=== PATIENT | female | born 1960 | race Caucasian/White ===

== ENCOUNTER 2023-04-22 15:27 | Inpatient (IN) | payer OTHER ==
[~2023-04-22] VITALS: Ht 154.9 cm; Wt 61.2 kg
[~2023-04-22 15:27] MED LIST: BENA40TA89 PO; METF-518 PO; POTA-197 PO; PRO40 PO; ROSU20TA2 PO
[2023-04-22 15:36] VITALS: PULSE 69; RESP 16; TEMP 97.6; O2SAT 97
[2023-04-22] MEDS ORDERED: MECLIZINE HCL 25 MG TABLET (ANITVERT) PO ONE (15:45)
[2023-04-22] MEDS ORDERED: METOCLOPRAMIDE HCL 10 MG/2 ML VIAL IVP ONE (15:45)
[2023-04-22 16:09] LABS: BASOPHILS % (AUTO) 0.1 % (0.0-2.0); HEMATOCRIT 37.6 % (36-48); HEMOGLOBIN 11.8 g/dL (12.0-16.0); LYMPHOCYTES # (AUTO) 0.6 K/uL (1.0-5.5); LYMPHOCYTES % (AUTO) 2.7 % (20.5-51.5); MEAN CORPUSCULAR HEMOGLOBIN 26 pg (27-31); MEAN CORPUSCULAR HGB CONC 31 % (32-36); MEAN CORPUSCULAR VOLUME 84 fL (79.0-98.0); MONOCYTES # (AUTO) 0.3 K/uL (0.0-1.0); MONOCYTES % (AUTO) 1.3 % (1.7-9.3); NEUTROPHILS # (AUTO) 19.9 K/uL (1.8-7.7); NEUTROPHILS % (AUTO) 95.9 % (40.0-70.0); PLATELET COUNT (AUTO) 320 K/uL (130-430); RED BLOOD CELL COUNT(AUTO) 4.48 MIL/uL (4.2-6.2); RED CELL DISTRIBUTION WIDTH 14.3 % (9.0-15.0); WHITE BLOOD COUNT (AUTO) 20.8 K/uL (4.8-10.8)
[2023-04-22 16:21] LABS: ALBUMIN 3.2 g/dL (3.4-4.8); ANION GAP 8 (5-15); ASPARTATE AMINOTRANSFERASE 12 U/L (10-37); CALCIUM 9.3 mg/dL (8.4-11.0); CARBON DIOXIDE 29 mmol/L (23-29); CHLORIDE 91 mmol/L (98-107); CREATININE 0.83 mg/dL (0.55-1.30); GFR AFRICAN AMERICAN 89 mL/min (>90); GFR NON AFRICAN-AMERICAN 74 mL/min (>90); GLUCOSE 369 mg/dL (74-106); POTASSIUM 4.1 mmol/L (3.5-5.1); SODIUM SERUM 128 mmol/L (136-145); TOTAL BILIRUBIN 0.9 mg/dL (0.0-1.0); TOTAL PROTEIN, SERUM 7.3 g/dL (6.4-8.3); UREA NITROGEN, BLOOD 11 mg/dL (8-21)
[2023-04-22 16:32] LABS: CREATINE KINASE, TOTAL 14 U/L (26-192); LIPASE 41 U/L (73-393)
[2023-04-22 16:45] LABS: ACETONE, SERUM TRACE (NEGATIVE)
[2023-04-22] MEDS ORDERED: PIPERACILLIN/TAZO 4.5GM/DEX-IS 100 ML IV SCH (16:45)
[2023-04-22 16:57] LABS: ALANINE AMINOTRANSFERASE 12 U/L (12-78)
[2023-04-22] MEDS ORDERED: PIPERACILLIN/TAZO 4.5GM/DEX-IS 100 ML IV ONE (17:00)
[2023-04-22 17:31] LABS: BILIRUBIN,URINE NEGATIVE (NEGATIVE); BLOOD, URINE 2+ (NEGATIVE); CLARITY/URINE SL CLOUDY (CLEAR); COLOR,URINE YELLOW (YELLOW); GLUCOSE,URINE 3+ (NEGATIVE); KETONES,URINE 2+ (NEGATIVE); LEUKOCYTE ESTERASE ,URINE 1+ (NEGATIVE); NITRITE, URINE POSITIVE (NEGATIVE); PH,URINE 5.5 (5.0-8.0); PROTEIN URINE 1+ (NEGATIVE); UROBILINOGEN,URINE 0.2 (0.2-1.0)
[2023-04-22 17:39] LABS: BACTERIA,URINE MODERATE /HPF (None Seen); MUCUS,URINE None Seen /LPF (None Seen); RBC,URINE NONE SEEN /HPF (0-3); YEAST,URINE Few /HPF (None Seen)
[2023-04-22] MEDS ORDERED: VANCOMYCIN HCL 1,000 MG in NS 250 ML IV ONE (18:00)
[2023-04-22] MEDS ORDERED: D5/0.45 NS 1,000 ML IV ONE (18:30)
[2023-04-22 21:36] VITALS: BP_SYST 142; PULSE 85; RESP 18; TEMP 97.6
[2023-04-22] MEDS ORDERED: cefTRIAXone 1 GM VIAL ONE (22:58)
[2023-04-22] MEDS: cefTRIAXone 1 GM in D5W 50 ML IV SCH (23:06)
[2023-04-23 00:49] VITALS: BP_SYST 128; PULSE 69; RESP 16; TEMP 97.3; O2SAT 97
[2023-04-23 06:22] LABS: CALCIUM 8.7 mg/dL (8.4-11.0); CREATININE 0.67 mg/dL (0.55-1.30); POTASSIUM 3.3 mmol/L (3.5-5.1)
[2023-04-23 06:26] LABS: ALBUMIN 2.7 g/dL (3.4-4.8); TOTAL BILIRUBIN 0.6 mg/dL (0.0-1.0); TOTAL PROTEIN, SERUM 6.5 g/dL (6.4-8.3)
[2023-04-23 07:00] VITALS: O2SAT 100
[2023-04-23 08:00] VITALS: BP_SYST 136; PULSE 88; RESP 16; TEMP 100.2; O2SAT 94
[2023-04-23 11:05] VITALS: BP_SYST 130; PULSE 78; RESP 18; TEMP 97.8; O2SAT 93
[2023-04-23] MEDS ORDERED: D5W 1,000 ML IV PRN (12:00)
[2023-04-23] MEDS ORDERED: POTASSIUM CHLORIDE 20 MEQ TAB.PRT.SR PO ONE (12:00)
[2023-04-23] MEDS ORDERED: GLUCOSE (DEXTROSE) ORAL GEL -Adults PO PRN (12:00)
[2023-04-23] MEDS ORDERED: DEXTROSE 50% JECT 50 ML DISP.SYRIN IVP PRN (12:00)
[2023-04-23] MEDS: INSULIN LISPRO SLIDING SCALE 100 UNITS/ML, 3 ML VIAL (humaLOG) SUBCUT PRN ×3 (13:39→20:48)
[2023-04-23] MEDS: 0.45% NACL 1,000 ML IV SCH (13:41)
[2023-04-23 17:10] VITALS: BP_SYST 122; PULSE 87; RESP 17; TEMP 98.8; O2SAT 96
[2023-04-23 20:00] VITALS: BP_SYST 144; PULSE 87; RESP 16; TEMP 99; O2SAT 94
[2023-04-23] MEDS ORDERED: cefTRIAXone 1 GM IVPB PREMIX 50 ML IV ONE (22:16)
[2023-04-23] MEDS: cefTRIAXone 1 GM in D5W 50 ML IV SCH (22:31)
[2023-04-24 00:06] VITALS: BP_SYST 146; PULSE 91; RESP 18; TEMP 100.1; O2SAT 96
[2023-04-24 00:07] VITALS: O2SAT 94
[2023-04-24] MEDS: 0.45% NACL 1,000 ML IV SCH ×3 (00:59→19:20)
[2023-04-24] MEDS: INSULIN LISPRO SLIDING SCALE 100 UNITS/ML, 3 ML VIAL (humaLOG) SUBCUT PRN ×3 (06:11→21:03)
[2023-04-24 07:00] VITALS: O2SAT 96
[2023-04-24 07:13] LABS: CALCIUM 8.6 mg/dL (8.4-11.0); CREATININE 0.59 mg/dL (0.55-1.30); POTASSIUM 3.8 mmol/L (3.5-5.1)
[2023-04-24 07:19] LABS: BASOPHILS # (AUTO) 0.1 K/uL (0.0-0.2); BASOPHILS % (AUTO) 0.3 % (0.0-2.0); EOSINOPHILS # (AUTO) 0.1 K/uL (0.0-0.4); EOSINOPHILS % (AUTO) 0.3 % (0.0-4.0); HEMATOCRIT 36.1 % (36-48); HEMOGLOBIN 11.6 g/dL (12.0-16.0); LYMPHOCYTES # (AUTO) 1.4 K/uL (1.0-5.5); LYMPHOCYTES % (AUTO) 7.7 % (20.5-51.5); MEAN CORPUSCULAR HEMOGLOBIN 27 pg (27-31); MEAN CORPUSCULAR HGB CONC 32 % (32-36); MEAN CORPUSCULAR VOLUME 83 fL (79.0-98.0); MONOCYTES # (AUTO) 0.9 K/uL (0.0-1.0); MONOCYTES % (AUTO) 4.9 % (1.7-9.3); NEUTROPHILS # (AUTO) 15.8 K/uL (1.8-7.7); NEUTROPHILS % (AUTO) 86.8 % (40.0-70.0); PLATELET COUNT (AUTO) 281 K/uL (130-430); RED BLOOD CELL COUNT(AUTO) 4.35 MIL/uL (4.2-6.2); WHITE BLOOD COUNT (AUTO) 18.2 K/uL (4.8-10.8)
[2023-04-24 11:14] VITALS: BP_SYST 146; PULSE 77; RESP 16; TEMP 97.4; O2SAT 96
[2023-04-24] MEDS ORDERED: INSULIN GLARGINE 100 UNITS/ML, 10 ML VIAL SUBCUT ONE (13:30)
[2023-04-24] MEDS ORDERED: MEROPENEM 1 GM in NS 100 ML IV SCH (14:00)
[2023-04-24 16:07] VITALS: BP_SYST 145; PULSE 90; RESP 17; TEMP 98.2; O2SAT 98
[2023-04-24] MEDS: VANCOMYCIN HCL 750 MG in NS 250 ML IV SCH (19:19)
[2023-04-24 20:00] VITALS: BP_SYST 165; PULSE 58; RESP 16; TEMP 97.5; O2SAT 98
[2023-04-24] MEDS ORDERED: cefTRIAXone 1 GM in D5W 50 ML IV SCH (21:00)
[2023-04-25 00:15] VITALS: BP_SYST 155; PULSE 77; RESP 16; TEMP 96.9; O2SAT 96
[2023-04-25] MEDS: 0.45% NACL 1,000 ML IV SCH (03:42)
[2023-04-25] MEDS: VANCOMYCIN HCL 750 MG in NS 250 ML IV SCH ×2 (05:45→17:35)
[2023-04-25] MEDS: INSULIN LISPRO SLIDING SCALE 100 UNITS/ML, 3 ML VIAL (humaLOG) SUBCUT PRN ×4 (06:29→20:46)
[2023-04-25 08:14] VITALS: BP_SYST 133; PULSE 75; RESP 14; TEMP 97.8; O2SAT 95
[2023-04-25] MEDS ORDERED: INSULIN GLARGINE 100 UNITS/ML, 10 ML VIAL SUBCUT SCH (09:00)
[2023-04-25 11:17] VITALS: BP_SYST 146; PULSE 75; RESP 16; TEMP 97.7; O2SAT 94
[2023-04-25 11:39] VITALS: O2SAT 95
[2023-04-25 13:34] LABS: BASOPHILS # (AUTO) 0.1 K/uL (0.0-0.2); BASOPHILS % (AUTO) 0.6 % (0.0-2.0); EOSINOPHILS # (AUTO) 0.1 K/uL (0.0-0.4); EOSINOPHILS % (AUTO) 0.9 % (0.0-4.0); HEMATOCRIT 34.7 % (36-48); LYMPHOCYTES # (AUTO) 1.4 K/uL (1.0-5.5); LYMPHOCYTES % (AUTO) 10.8 % (20.5-51.5); MEAN CORPUSCULAR HEMOGLOBIN 26 pg (27-31); MEAN CORPUSCULAR HGB CONC 32 % (32-36); MEAN CORPUSCULAR VOLUME 83 fL (79.0-98.0); MONOCYTES # (AUTO) 0.9 K/uL (0.0-1.0); MONOCYTES % (AUTO) 6.4 % (1.7-9.3); NEUTROPHILS # (AUTO) 10.8 K/uL (1.8-7.7); NEUTROPHILS % (AUTO) 81.3 % (40.0-70.0); PLATELET COUNT (AUTO) 282 K/uL (130-430); RED BLOOD CELL COUNT(AUTO) 4.18 MIL/uL (4.2-6.2); RED CELL DISTRIBUTION WIDTH 14.1 % (9.0-15.0); WHITE BLOOD COUNT (AUTO) 13.3 K/uL (4.8-10.8)
[2023-04-25 15:33] VITALS: BP_SYST 124; PULSE 72; RESP 16; TEMP 96.4; O2SAT 96
[2023-04-25] MEDS ORDERED: cefTRIAXone 1 GM in D5W 50 ML IV SCH (18:00)
[2023-04-25 20:00] VITALS: BP_SYST 135; PULSE 82; RESP 16; TEMP 98.2; O2SAT 97
[2023-04-26] VITALS (8 sets, daily range): BP systolic 137–146; PULSE 69–87; RESP 14–18; TEMP 97.3–98; O2SAT 94–98
[2023-04-26] MEDS: INSULIN LISPRO SLIDING SCALE 100 UNITS/ML, 3 ML VIAL (humaLOG) SUBCUT PRN ×4 (06:10→21:54)
[2023-04-26] MEDS: INSULIN GLARGINE 100 UNITS/ML, 10 ML VIAL SUBCUT SCH (08:37)
[2023-04-26 09:58] LABS: CALCIUM 8.5 mg/dL (8.4-11.0); CREATININE 0.53 mg/dL (0.55-1.30); POTASSIUM 3.4 mmol/L (3.5-5.1)
[2023-04-26] MEDS ORDERED: INSU100V9 SUBCUT (15:20)
[2023-04-26] MEDS ORDERED: ROCI2 IM/IV (15:20)
[2023-04-26] MEDS ORDERED: cefTRIAXone 2 GM in D5W 50 ML IV SCH (18:00)
[2023-04-26] MEDS ORDERED: cefTRIAXone 1 GM VIAL ONE (23:51)
[2023-04-27 01:17] VITALS: BP_SYST 160; PULSE 76; RESP 18; TEMP 96.8; O2SAT 95
[2023-04-27 08:00] VITALS: BP_SYST 141; PULSE 79; RESP 18; TEMP 96.9; O2SAT 97
[2023-04-27] MEDS ORDERED: cefTRIAXone 2 GM in D5W 50 ML IV SCH (09:00)
[2023-04-27] MEDS: INSULIN GLARGINE 100 UNITS/ML, 10 ML VIAL SUBCUT SCH (09:02)
[2023-04-27 10:43] VITALS: O2SAT 97
[2023-04-27 11:35] VITALS: BP_SYST 139; PULSE 82; RESP 15; TEMP 97.5; O2SAT 95
[2023-04-27] MEDS: INSULIN LISPRO SLIDING SCALE 100 UNITS/ML, 3 ML VIAL (humaLOG) SUBCUT PRN (11:55)
[2023-04-27 15:28] VITALS: BP_SYST 126; PULSE 74; RESP 16; TEMP 97.7; O2SAT 94
== END 2023-04-27 18:48 | disposition home health service (06) | DRG 871 ==
LOC: SED 15:27 → SMU 21:35
PROVIDERS: ADMIT Specialist; ATTEND Specialist
DX: A41.2 Sepsis due to unspecified staphylococcus (principal); G93.41 Metabolic encephalopathy; N12 Tubulo-interstitial nephritis, not specified as acute or chronic; E11.40 Type 2 diabetes mellitus with diabetic neuropathy, unspecified; E78.5 Hyperlipidemia, unspecified; Z20.822 Contact with and (suspected) exposure to COVID-19; I10 Essential (primary) hypertension; Z90.49 Acquired absence of other specified parts of digestive tract; Z79.899 Other long term (current) drug therapy; Z79.4 Long term (current) use of insulin
CPT/HCPCS: 36415; 70450-TC; 71045; 76376; 80048; 80053; 80202; 81000; 82009; 82550; 82962; 83605; 83690; 84484; 85025; 87040; 87086; 93005; 93306; 96361; 96365; 96367; 96375; 97110-GP; 97116-GP; 97163-GP; 97530-GP; 99285; J0696; J1815; J2185; J2543; J2765; J3370; J7030; J7050; J7060; J8597

== ENCOUNTER 2024-01-29 20:39 | Emergency (ER) | payer OTHER ==
[~2024-01-29] VITALS: Ht 157.5 cm; Wt 62.6 kg
[~2024-01-29 20:39] MED LIST changes: +INSU100V9 SUBCUT; -POTA-197 PO; +ROCI2 IM/IV
[2024-01-29 20:46] VITALS: BP_SYST 98; PULSE 84; RESP 20; TEMP 99.2; O2SAT 97
[2024-01-29 21:39] LABS: BASOPHILS # (AUTO) 0.1 K/uL (0.0-0.2); BASOPHILS % (AUTO) 0.4 % (0.0-2.0); EOSINOPHILS # (AUTO) 0.2 K/uL (0.0-0.4); EOSINOPHILS % (AUTO) 1.5 % (0.0-4.0); HEMATOCRIT 34.8 % (36-48); HEMOGLOBIN 11.7 g/dL (12.0-16.0); LYMPHOCYTES # (AUTO) 1.8 K/uL (1.0-5.5); LYMPHOCYTES % (AUTO) 11.4 % (20.5-51.5); MEAN CORPUSCULAR HEMOGLOBIN 29 pg (27-31); MEAN CORPUSCULAR HGB CONC 34 % (32-36); MEAN CORPUSCULAR VOLUME 87 fL (79.0-98.0); MONOCYTES # (AUTO) 1.3 K/uL (0.0-1.0); MONOCYTES % (AUTO) 8.1 % (1.7-9.3); NEUTROPHILS # (AUTO) 12.3 K/uL (1.8-7.7); NEUTROPHILS % (AUTO) 78.6 % (40.0-70.0); PLATELET COUNT (AUTO) 328 K/uL (130-430); RED BLOOD CELL COUNT(AUTO) 4.01 MIL/uL (4.2-6.2); RED CELL DISTRIBUTION WIDTH 13.1 % (9.0-15.0); WHITE BLOOD COUNT (AUTO) 15.7 K/uL (4.8-10.8)
[2024-01-29 21:53] LABS: ANION GAP 7 (5-15); ASPARTATE AMINOTRANSFERASE 8 U/L (10-37); CALCIUM 8.4 mg/dL (8.4-11.0); CARBON DIOXIDE 28 mmol/L (23-29); CHLORIDE 100 mmol/L (98-107); CREATININE 0.94 mg/dL (0.55-1.30); GFR AFRICAN AMERICAN 77 mL/min (>90); GLUCOSE 194 mg/dL (74-106); POTASSIUM 4.8 mmol/L (3.5-5.1); SODIUM SERUM 135 mmol/L (136-145); TOTAL BILIRUBIN 0.5 mg/dL (0.0-1.0); TOTAL PROTEIN, SERUM 7.1 g/dL (6.4-8.3); UREA NITROGEN, BLOOD 21 mg/dL (8-21)
[2024-01-29 21:57] LABS: GFR NON AFRICAN-AMERICAN 64 mL/min (>90)
[2024-01-29 22:02] LABS: BILIRUBIN,DIRECT 0.2 mg/dL (0.0-0.3); CREATINE KINASE, TOTAL 31 U/L (26-192); FREE T4 (FREE THYROXINE) 1.3 ng/dl (0.8-1.5); THYROID STIMULATING HORMONE 2.23 uIu/mL (0.36-3.74)
[2024-01-29 22:12] LABS: ALANINE AMINOTRANSFERASE 7 U/L (12-78)
[2024-01-29 22:25] LABS: INR 1.1 (0.8-1.2); PROTHROMBIN TIME 11.1 SECS (9.5-12.5)
[2024-01-29] MEDS: cefTRIAXone 1 GM IVPB PREMIX 50 ML IV ONE (23:07)
[2024-01-29] MEDS: NACL 0.9% 1,000 ML IV ONE (23:08)
[2024-01-29 23:28] LABS: BILIRUBIN,URINE NEGATIVE (NEGATIVE); BLOOD, URINE 2+ (NEGATIVE); CLARITY/URINE SL CLOUDY (CLEAR); COLOR,URINE YELLOW (YELLOW); GLUCOSE,URINE NEGATIVE (NEGATIVE); KETONES,URINE NEGATIVE (NEGATIVE); LEUKOCYTE ESTERASE ,URINE 2+ (NEGATIVE); NITRITE, URINE NEGATIVE (NEGATIVE); PROTEIN URINE 2+ (NEGATIVE); UROBILINOGEN,URINE 0.2 (0.2-1.0)
[2024-01-29 23:36] LABS: BACTERIA,URINE MANY /HPF (None Seen); WBC,URINE >100 /HPF (0-3)
[2024-01-29 23:52] LABS: ACETONE, SERUM NEGATIVE (NEGATIVE)
[2024-01-30] MEDS ORDERED: CIPR500T5 PO (00:06)
[2024-01-30 00:20] VITALS: BP_SYST 139; PULSE 87; RESP 16; TEMP 97.8; O2SAT 98
== END 2024-01-30 00:20 | disposition home or self-care (01) ==
LOC: SED 20:39
DX: N39.0 Urinary tract infection, site not specified (principal); N81.10 Cystocele, unspecified; E11.9 Type 2 diabetes mellitus without complications; I10 Essential (primary) hypertension; Z79.899 Other long term (current) drug therapy
CPT/HCPCS: 99285; 96365; 71045; 80076; 80048; 81001; 82009; 82550; 84439; 84443; 85025; 85610; 85730; 87040; 87086; 84484; 36415; 93005; 83605; 81000; 81015; J0696

== ENCOUNTER 2024-01-31 09:13 | Emergency (ER) | payer OTHER ==
[~2024-01-31] VITALS: Ht 157.5 cm; Wt 62.6 kg
[~2024-01-31 09:13] MED LIST changes: +CIPR500T5 PO
[2024-01-31 09:28] VITALS: BP_SYST 166; PULSE 72; RESP 20; TEMP 98.3; O2SAT 98
[2024-01-31 09:56] LABS: BASOPHILS # (AUTO) 0.1 K/uL (0.0-0.2); BASOPHILS % (AUTO) 0.6 % (0.0-2.0); EOSINOPHILS # (AUTO) 0.3 K/uL (0.0-0.4); EOSINOPHILS % (AUTO) 2.6 % (0.0-4.0); HEMATOCRIT 36.5 % (36-48); HEMOGLOBIN 12.3 g/dL (12.0-16.0); LYMPHOCYTES # (AUTO) 1.6 K/uL (1.0-5.5); LYMPHOCYTES % (AUTO) 15.6 % (20.5-51.5); MEAN CORPUSCULAR HEMOGLOBIN 29 pg (27-31); MEAN CORPUSCULAR HGB CONC 34 % (32-36); MEAN CORPUSCULAR VOLUME 88 fL (79.0-98.0); MONOCYTES # (AUTO) 0.7 K/uL (0.0-1.0); MONOCYTES % (AUTO) 7.1 % (1.7-9.3); NEUTROPHILS # (AUTO) 7.7 K/uL (1.8-7.7); NEUTROPHILS % (AUTO) 74.1 % (40.0-70.0); PLATELET COUNT (AUTO) 358 K/uL (130-430); RED BLOOD CELL COUNT(AUTO) 4.18 MIL/uL (4.2-6.2); RED CELL DISTRIBUTION WIDTH 13.1 % (9.0-15.0); WHITE BLOOD COUNT (AUTO) 10.4 K/uL (4.8-10.8)
[2024-01-31 10:10] LABS: CREATININE 0.72 mg/dL (0.55-1.30); POTASSIUM 4.5 mmol/L (3.5-5.1)
[2024-01-31 10:16] LABS: PROTHROMBIN TIME 10.8 SECS (9.5-12.5)
[2024-01-31 10:48] LABS: BILIRUBIN,URINE NEGATIVE (NEGATIVE); BLOOD, URINE 1+ (NEGATIVE); CLARITY/URINE CLEAR (CLEAR); COLOR,URINE YELLOW (YELLOW); GLUCOSE,URINE NEGATIVE (NEGATIVE); KETONES,URINE 1+ (NEGATIVE); LEUKOCYTE ESTERASE ,URINE NEGATIVE (NEGATIVE); NITRITE, URINE NEGATIVE (NEGATIVE); PROTEIN URINE 3+ (NEGATIVE); UROBILINOGEN,URINE 0.2 (0.2-1.0)
[2024-01-31 11:00] LABS: BACTERIA,URINE FEW /HPF (None Seen); MUCUS,URINE 1+ /LPF (None Seen)
[2024-01-31 11:41] VITALS: BP_SYST 142; PULSE 70; RESP 22; TEMP 98; O2SAT 99
== END 2024-01-31 11:35 | disposition home or self-care (01) ==
LOC: SED 09:13
DX: K62.5 Hemorrhage of anus and rectum (principal); N81.10 Cystocele, unspecified; Z46.6 Encounter for fitting and adjustment of urinary device; E11.9 Type 2 diabetes mellitus without complications; I10 Essential (primary) hypertension
CPT/HCPCS: 36415; 80048; 81000; 81001; 81015; 85025; 85610; 85730; 87086; 99283

== ENCOUNTER 2024-07-23 08:34 | Emergency (ER) | payer OTHER ==
[~2024-07-23] VITALS: Ht 157.5 cm; Wt 60.3 kg
[2024-07-23 08:39] VITALS: BP_SYST 150; PULSE 75; RESP 16; TEMP 97.1; O2SAT 99
[2024-07-23 09:37] LABS: BASOPHILS % (AUTO) 0.6 % (0.0-2.0); EOSINOPHILS # (AUTO) 0.1 K/uL (0.0-0.4); EOSINOPHILS % (AUTO) 1.4 % (0.0-4.0); HEMATOCRIT 37.9 % (36-48); HEMOGLOBIN 12.5 g/dL (12.0-16.0); LYMPHOCYTES # (AUTO) 1.8 K/uL (1.0-5.5); LYMPHOCYTES % (AUTO) 26.3 % (20.5-51.5); MEAN CORPUSCULAR HEMOGLOBIN 29 pg (27-31); MEAN CORPUSCULAR HGB CONC 33 % (32-36); MEAN CORPUSCULAR VOLUME 89 fL (79.0-98.0); MONOCYTES # (AUTO) 0.5 K/uL (0.0-1.0); MONOCYTES % (AUTO) 7.4 % (1.7-9.3); NEUTROPHILS # (AUTO) 4.5 K/uL (1.8-7.7); NEUTROPHILS % (AUTO) 64.3 % (40.0-70.0); PLATELET COUNT (AUTO) 211 K/uL (130-430); RED BLOOD CELL COUNT(AUTO) 4.25 MIL/uL (4.2-6.2); RED CELL DISTRIBUTION WIDTH 13.6 % (9.0-15.0); WHITE BLOOD COUNT (AUTO) 6.9 K/uL (4.8-10.8)
[2024-07-23 10:02] LABS: ALBUMIN 4.1 g/dL (3.4-4.8); BILIRUBIN,DIRECT 0.1 mg/dL (0.0-0.3); CALCIUM 9.9 mg/dL (8.4-11.0); CREATININE 0.81 mg/dL (0.55-1.30); TOTAL BILIRUBIN 0.4 mg/dL (0.0-1.0); TOTAL PROTEIN, SERUM 7.5 g/dL (6.4-8.3)
[2024-07-23 10:16] LABS: BILIRUBIN,URINE NEGATIVE (NEGATIVE); BLOOD, URINE NEGATIVE (NEGATIVE); CLARITY/URINE CLEAR (CLEAR); COLOR,URINE YELLOW (YELLOW); GLUCOSE,URINE NEGATIVE (NEGATIVE); KETONES,URINE NEGATIVE (NEGATIVE); LEUKOCYTE ESTERASE ,URINE NEGATIVE (NEGATIVE); NITRITE, URINE NEGATIVE (NEGATIVE); PROTEIN URINE NEGATIVE (NEGATIVE); UROBILINOGEN,URINE 0.2 (0.2-1.0)
[2024-07-23] MEDS ORDERED: LANC1COM2 MC (10:27)
[2024-07-23] MEDS ORDERED: glucometer SQ (10:27)
[2024-07-23 11:14] VITALS: BP_SYST 147; PULSE 73; RESP 16; TEMP 97.1; O2SAT 99
== END 2024-07-23 11:12 | disposition home or self-care (01) ==
LOC: SED 08:34
DX: L03.032 Cellulitis of left toe (principal); E11.649 Type 2 diabetes mellitus with hypoglycemia without coma; R25.1 Tremor, unspecified; R68.83 Chills (without fever); E07.9 Disorder of thyroid, unspecified; I10 Essential (primary) hypertension; Z79.4 Long term (current) use of insulin; Z79.84 Long term (current) use of oral hypoglycemic drugs; Z79.899 Other long term (current) drug therapy
CPT/HCPCS: 36415; 80048; 80076; 81001; 81003; 83690; 85025; 99283